=== PATIENT | male | born 1985 | race Caucasian/White ===

== ENCOUNTER 2022-04-26 08:45 | Outpatient (CLI) | payer OTHER, SELFPAY | END 2022-04-26 08:46 | disposition home or self-care (01) | LOC: ANHBWCAUD 08:46 | PROVIDERS: Visit Provider Internal Medicine | DX: H90.42 Sensorineural hearing loss, unilateral, left ear, with unrestricted hearing on the contralateral side (principal) | CPT/HCPCS: 92557; 92567 ==

== ENCOUNTER 2023-12-18 12:52 | Emergency (ER) | payer OTHER, SELFPAY ==
[2023-12-18 13:02] VITALS: BP 127/73; PULSE 87; RESP 16; TEMP 36.4; O2SAT 99
--- NOTE | 2023-12-18 13:21 | ED.WOUNDLAC ---
HPI - Wound/Laceration General Chief Complaint: Wound/Laceration Stated Complaint: remove stitches from knee Time Seen by Provider: 12/18/23 13:21 Source: patient Mode of arrival: ambulatory Limitations: no limitations History of Present Illness HPI narrative: 38-year-old male presented for suture removal. Endorses 4 sutures placed to the left knee 8 days ago at outside emergency room. He states the injury sustained was due to shattered glass. Taking cephalexin as prescribed. Denies concerns for infection. Related Data Home Medications Medication Instructions Recorded Confirmed cephalexin 500 mg capsule mg 12/18/23 cetirizine 10 mg tablet mg 12/18/23 sotalol 80 mg tablet mg 12/18/23 Allergies Allergy/AdvReac Type Severity Reaction Status Date / Time No Known Allergies Allergy Verified 12/18/23 13:00 Review of Systems Review of Systems: CONSTITUTIONAL: Denies body aches, fever, chills, or sweats. CARDIOVASCULAR: Denies chest pain, palpitations, or edema. RESPIRATORY: Denies cough or dyspnea. GASTROINTESTINAL: Denies abdominal pain, nausea, vomiting, or diarrhea. SKIN: Sutures to left knee MUSCULOSKELETAL: Denies joint pain or myalgia. NEUROLOGIC: Denies headache PMFSH Comments At time of signature, I have reviewed and agree with nursing past medical, surgical, social and family history unless otherwise noted. Please see nursing chart for further information. There is no relevant family history pertinent to the presenting complaint Exam Narrative: GENERAL: Well-appearing HEAD: Normocephalic, atraumatic. EYES: conjunctivae clear, and EOMI. ENT: Mucous membranes moist. Oropharynx without edema, erythema or lesions. NECK: Supple. No lymphadenopathy CHEST: Clear to auscultation. HEART: Regular rate and rhythm. SKIN: Warm, dry. [address] and intact to the left knee, no signs of infection to the laceration, appears to be well approximated. NEURO: Alert and oriented x3. Course Course Emergency Course: Patient is aware of diagnosis, understands and agrees to treatment plan. Anticipatory guidance given. Patient agrees to follow-up as directed and is aware of reasons to seek care at the emergency department. Portions of this record may have been created with voice recognition software Level of Care: Express Care Visit Vital Signs Vital signs: Vital Signs Temperature 97.5 F L 12/18/23 13:02 Pulse Rate 87 12/18/23 13:02 Respiratory Rate 16 12/18/23 13:02 Blood Pressure 127/73 12/18/23 13:02 Pulse Oximetry 99 12/18/23 13:02 Oxygen Delivery Room Air 12/18/23 13:02 Temperature 97.5 F L 12/18/23 13:02 Pulse Rate 87 12/18/23 13:02 Respiratory Rate 16 12/18/23 13:02 Blood Pressure 127/73 12/18/23 13:02 Pulse Oximetry 99 12/18/23 13:02 Oxygen Delivery Room Air 12/18/23 13:02 Reviewed Procedures Other Procedure Procedure 1: Other Procedure: 4 sutures removed from laceration to the left knee. Tolerated well. Wound edges are approximated, no surrounding erythema, drainage or tenderness. Neosporin and Band-Aid applied. MDM - Wound/Laceration MDM Narrative Medical decision making narrative: Discussed physical exam findings. Advised supportive measures and signs/symptoms to go to the ER. Pt is appropriate for outpt treatment and f/u. Differential Diagnosis Differential diagnosis: Likely laceration, abrasion, avulsion of skin and other ( Suture removal) Discharge Plan Discharge Clinical Impression: Encounter for removal of sutures Patient Disposition: Home, Self-Care Condition: Stable Instructions: Antibiotic Form, Laceration (ED) Additional Instructions: Keep the area clean and dry - cleanse with warm water and mild soap and allow to fully dry. Ok to apply neosporin to the site Keep it open to air (no bandages) Watch for worsening symptoms including pain, redness, swelling, streaking, pus/ghanshyam
== END 2023-12-18 13:38 | disposition home or self-care (01) ==
PROVIDERS: Emergency Provider Nurse Practitioner Family; PCP Internal Medicine
DX: S81.012D Laceration without foreign body, left knee, subsequent encounter (principal); W25.XXXD Contact with sharp glass, subsequent encounter
CPT/HCPCS: 99211; G0463